=== PATIENT | female | born 1965 | race Two or more races ===

== ENCOUNTER 2021-05-30 16:48 | Inpatient (IN) | payer OTHER ==
[~2021-05-30] VITALS: Ht 157.5 cm; Wt 83.9 kg
[2021-05-30] MEDS ORDERED: BUMETANIDE INJ 0.25 MG/ML VIAL ONE (17:16)
[2021-05-30] MEDS ORDERED: BUMETANIDE INJ 0.25 MG/ML VIAL IV ONE (17:30)
[2021-05-30 17:58] LABS: BASOPHILS % (AUTO) 0.6 % (0.0-2.0); EOSINOPHILS % (AUTO) 3.2 % (0.0-6.0); HEMATOCRIT 29 % (33-45); HEMOGLOBIN 9.4 g/dL (11.5-14.8); LYMPHOCYTES # (AUTO) 1.4 K/uL (0.8-4.8); LYMPHOCYTES % (AUTO) 18.2 % (20.0-44.0); MEAN CORPUSCULAR HGB CONC 33 g/dl (31.0-36.0); MEAN CORPUSCULAR VOLUME 94 fL (82-100); MONOCYTES # (AUTO) 0.7 K/uL (0.1-1.30); MONOCYTES % (AUTO) 8.3 % (2.0-12.0); NEUTROPHILS # (AUTO) 5.5 K/uL (1.8-8.9); NEUTROPHILS % (AUTO) 69.7 % (43.0-81.0); PLATELET COUNT (AUTO) 219 K/uL (150-450); RED BLOOD CELL COUNT(AUTO) 3.08 MIL/uL (4.0-5.2); WHITE BLOOD COUNT (AUTO) 7.9 K/uL (4.3-11.0)
[2021-05-30 18:11] LABS: CALCIUM, SERUM 8.3 mg/dL (8.5-10.1); CARBON DIOXIDE 24 mmol/L (21-32); CHLORIDE 110 mmol/L (98-107); CREATININE 1.9 mg/dL (0.6-1.3); GLUCOSE 148 mg/dL (74-106); POTASSIUM 5.5 mmol/L (3.5-5.1); SODIUM SERUM 140 mmol/L (136-145); UREA NITROGEN, BLOOD 41 mg/dL (7-18)
[2021-05-30] MEDS ORDERED: NITROGLYCERIN 0.4 MG/TAB BOTTLE SL ONE (18:30)
[2021-05-30] MEDS ORDERED: NITROGLYCERIN 0.4 MG/TAB BOTTLE ONE (18:53)
[2021-05-30] MEDS ORDERED: ENALAPRILAT INJ (1.25 MG/ML) 1.25 MG/ML VIAL IV ONE (21:28)
[2021-05-30] MEDS ORDERED: ENALAPRILAT DIHYD. (2.5MG/2ML) 1.25 MG/ML VIAL IV ONE (21:30)
[2021-05-30] MEDS ORDERED: ONDANSETRON HCL/PF 4 MG/2 ML VIAL IVP PRN (21:30)
[2021-05-30] MEDS ORDERED: LABETALOL HCL IV 100MG VIAL ONE (22:31)
[2021-05-30] MEDS: LABETALOL 20 MG/4 ML VIAL IV PRN (22:34)
[2021-05-30] MEDS: HEPARIN SODIUM, PORCINE 5000 UNITS/1 ML VIAL SQ SCH (22:51)
[2021-05-30] MEDS ORDERED: HEPARIN SODIUM, PORCINE 5000 UNITS/1 ML VIAL ONE (22:51)
[2021-05-30] MEDS ORDERED: DEXTROSE 50%-WATER 50 ML DISP.SYRIN IV PRN (23:00)
[2021-05-31] MEDS ORDERED: MORPHINE SULFATE INJ 2 MG/ML DISP.SYRIN ONE ×2 (00:38→05:39)
[2021-05-31] MEDS: MORPHINE SULFATE INJ 2 MG/ML DISP.SYRIN IV PRN ×2 (00:39→05:39)
[2021-05-31] MEDS ORDERED: DAPA10TA PO (01:05)
[2021-05-31] MEDS ORDERED: AZIT250T13 PO (01:05)
[2021-05-31] MEDS ORDERED: LEVO88TA5 PO (01:05)
[2021-05-31] MEDS ORDERED: GLIP10TA11 PO (01:05)
[2021-05-31] MEDS ORDERED: LABE200T5 PO (01:05)
[2021-05-31] MEDS ORDERED: ALBU2.5V38 IH (01:05)
[2021-05-31] MEDS ORDERED: BUME1TAB8 PO (01:05)
[2021-05-31] MEDS ORDERED: ACET-73 PO (01:05)
[2021-05-31] MEDS ORDERED: PANT40TA49 PO (01:05)
[2021-05-31] MEDS ORDERED: HYDR-4077 PO (01:05)
[2021-05-31 04:38] LABS: BASOPHILS % (AUTO) 0.5 % (0.0-2.0); EOSINOPHILS % (AUTO) 4.6 % (0.0-6.0); HEMATOCRIT 28 % (33-45); HEMOGLOBIN 9.5 g/dL (11.5-14.8); LYMPHOCYTES # (AUTO) 1.5 K/uL (0.8-4.8); LYMPHOCYTES % (AUTO) 22.1 % (20.0-44.0); MEAN CORPUSCULAR HGB CONC 33 g/dl (31.0-36.0); MEAN CORPUSCULAR VOLUME 94 fL (82-100); MONOCYTES # (AUTO) 0.6 K/uL (0.1-1.30); MONOCYTES % (AUTO) 9.1 % (2.0-12.0); NEUTROPHILS # (AUTO) 4.4 K/uL (1.8-8.9); NEUTROPHILS % (AUTO) 63.7 % (43.0-81.0); PLATELET COUNT (AUTO) 207 K/uL (150-450); RED BLOOD CELL COUNT(AUTO) 3.03 MIL/uL (4.0-5.2); WHITE BLOOD COUNT (AUTO) 6.9 K/uL (4.3-11.0)
[2021-05-31] MEDS: LABETALOL 20 MG/4 ML VIAL IV PRN (04:41)
[2021-05-31 05:33] LABS: ALBUMIN 2.4 g/dL (3.4-5.0); BILIRUBIN,TOTAL 0.3 mg/dL (0.2-1.0); CALCIUM, SERUM 8.1 mg/dL (8.5-10.1); CREATININE 1.9 mg/dL (0.6-1.3); MAGNESIUM 3.1 mg/dL (1.8-2.4); PHOSPHORUS 4.2 mg/dL (2.5-4.9); TOTAL PROTEIN, SERUM 5.8 g/dL (6.4-8.2)
[2021-05-31] MEDS: BLOOD SUGAR DIAGNOSTIC 1 EACH STRIP VI SCH ×4 (07:53→21:55)
[2021-05-31] MEDS ORDERED: BUMETANIDE INJ 0.25 MG/ML VIAL ONE (08:59)
[2021-05-31] MEDS: HEPARIN SODIUM, PORCINE 5000 UNITS/1 ML VIAL SQ SCH ×2 (09:00→20:45)
[2021-05-31] MEDS: BUMETANIDE INJ 0.25 MG/ML VIAL IV SCH ×2 (09:05→17:49)
[2021-05-31] MEDS ORDERED: HEPARIN SODIUM, PORCINE 5000 UNITS/1 ML VIAL ONE (09:56)
[2021-05-31] MEDS ORDERED: hydrALAZINE HCL 50 MG TABLET ONE (11:20)
[2021-05-31] MEDS: hydrALAZINE HCL 50 MG TABLET PO SCH ×2 (11:20→20:47)
[2021-05-31 16:00] VITALS: BP 151/84
[2021-05-31 20:00] VITALS: BP 186/100
[2021-05-31] MEDS: *INSULIN REGULAR(HUMULIN R)HUM 100 UNIT/ML VIAL SQ PRN (21:57)
[2021-05-31] MEDS ORDERED: LABETALOL HCL IV 100MG VIAL ONE (22:41)
[2021-05-31] MEDS: DOCUSATE SODIUM 100 MG CAPSULE PO SCH (22:44)
[2021-06-01] VITALS: BP 152/82
[2021-06-01] MEDS: CARVEDILOL 6.25 MG TABLET PO SCH ×3 (00:31→16:17)
[2021-06-01 04:00] VITALS: BP 156/85
[2021-06-01] MEDS: INSULIN REGULAR, HUMAN 100 UNIT/ML 3 ML VIAL SQ PRN ×3 (06:33→17:08)
[2021-06-01] MEDS: BLOOD SUGAR DIAGNOSTIC 1 EACH STRIP VI SCH ×4 (06:33→21:41)
[2021-06-01 06:57] LABS: BASOPHILS # (AUTO) 0.1 K/uL (0.0-0.2); BASOPHILS % (AUTO) 0.8 % (0.0-2.0); EOSINOPHILS % (AUTO) 3.5 % (0.0-6.0); HEMATOCRIT 30 % (33-45); LYMPHOCYTES # (AUTO) 0.9 K/uL (0.8-4.8); LYMPHOCYTES % (AUTO) 11.1 % (20.0-44.0); MEAN CORPUSCULAR HGB CONC 33 g/dl (31.0-36.0); MEAN CORPUSCULAR VOLUME 94 fL (82-100); MONOCYTES # (AUTO) 0.7 K/uL (0.1-1.30); MONOCYTES % (AUTO) 8.5 % (2.0-12.0); NEUTROPHILS # (AUTO) 6.2 K/uL (1.8-8.9); NEUTROPHILS % (AUTO) 76.1 % (43.0-81.0); PLATELET COUNT (AUTO) 234 K/uL (150-450); RED BLOOD CELL COUNT(AUTO) 3.24 MIL/uL (4.0-5.2); WHITE BLOOD COUNT (AUTO) 8.1 K/uL (4.3-11.0)
[2021-06-01 07:09] LABS: CALCIUM, SERUM 8.5 mg/dL (8.5-10.1); CREATININE 1.9 mg/dL (0.6-1.3); MAGNESIUM 2.9 mg/dL (1.8-2.4); PHOSPHORUS 4.9 mg/dL (2.5-4.9); POTASSIUM 5.1 mmol/L (3.5-5.1)
[2021-06-01 08:00] VITALS: BP 183/93
[2021-06-01] MEDS: HEPARIN SODIUM, PORCINE 5000 UNITS/1 ML VIAL SQ SCH ×2 (08:07→21:07)
[2021-06-01] MEDS: DOCUSATE SODIUM 100 MG CAPSULE PO SCH (08:11)
[2021-06-01] MEDS: BUMETANIDE INJ 0.25 MG/ML VIAL IV SCH ×2 (08:11→16:17)
[2021-06-01] MEDS: hydrALAZINE HCL 50 MG TABLET PO SCH ×2 (08:12→21:05)
[2021-06-01 12:00] VITALS: BP 145/72
[2021-06-01 16:00] VITALS: BP 143/80
[2021-06-01] MEDS ORDERED: methylPREDNISolone SOD SUCC 40 MG/ML VIAL IV ONE (19:00)
[2021-06-01] MEDS: PANTOPRAZOLE 40 MG VIAL IV SCH (19:18)
[2021-06-01 20:00] VITALS: BP 162/74
[2021-06-01] MEDS: *INSULIN REGULAR(HUMULIN R)HUM 100 UNIT/ML VIAL SQ PRN (21:51)
[2021-06-02] VITALS: BP 148/83
[2021-06-02 04:00] VITALS: BP 158/80
[2021-06-02] MEDS: INSULIN REGULAR, HUMAN 100 UNIT/ML 3 ML VIAL SQ PRN ×3 (06:37→17:06)
[2021-06-02] MEDS: BLOOD SUGAR DIAGNOSTIC 1 EACH STRIP VI SCH ×4 (06:54→22:24)
[2021-06-02] MEDS: DOCUSATE SODIUM 100 MG CAPSULE PO SCH (08:46)
[2021-06-02] MEDS: BUMETANIDE INJ 0.25 MG/ML VIAL IV SCH ×2 (08:47→16:56)
[2021-06-02] MEDS: HEPARIN SODIUM, PORCINE 5000 UNITS/1 ML VIAL SQ SCH ×2 (08:49→21:00)
[2021-06-02] MEDS: hydrALAZINE HCL 50 MG TABLET PO SCH ×2 (08:53→21:37)
[2021-06-02] MEDS: CARVEDILOL 6.25 MG TABLET PO SCH ×2 (08:53→16:56)
[2021-06-02] MEDS ORDERED: FUROSEMIDE 40 MG/4 ML VIAL IV SCH (11:30)
[2021-06-02 11:40] LABS: BASOPHILS % (AUTO) 0.4 % (0.0-2.0); HEMATOCRIT 30 % (33-45); LYMPHOCYTES # (AUTO) 1.1 K/uL (0.8-4.8); LYMPHOCYTES % (AUTO) 14.3 % (20.0-44.0); MEAN CORPUSCULAR HGB CONC 33 g/dl (31.0-36.0); MEAN CORPUSCULAR VOLUME 93 fL (82-100); MONOCYTES # (AUTO) 0.7 K/uL (0.1-1.30); MONOCYTES % (AUTO) 9.4 % (2.0-12.0); NEUTROPHILS # (AUTO) 5.7 K/uL (1.8-8.9); NEUTROPHILS % (AUTO) 75.9 % (43.0-81.0); PLATELET COUNT (AUTO) 220 K/uL (150-450); RED BLOOD CELL COUNT(AUTO) 3.27 MIL/uL (4.0-5.2); WHITE BLOOD COUNT (AUTO) 7.5 K/uL (4.3-11.0)
[2021-06-02 13:30] LABS: CALCIUM, SERUM 8.2 mg/dL (8.5-10.1); CREATININE 2.3 mg/dL (0.6-1.3)
[2021-06-02] MEDS: PANTOPRAZOLE 40 MG VIAL IV SCH (18:20)
[2021-06-02 20:00] VITALS: BP 132/66
[2021-06-02] MEDS: *INSULIN REGULAR(HUMULIN R)HUM 100 UNIT/ML VIAL SQ PRN (22:24)
[2021-06-03 06:49] LABS: BASOPHILS # (AUTO) 0.1 K/uL (0.0-0.2); BASOPHILS % (AUTO) 0.9 % (0.0-2.0); EOSINOPHILS % (AUTO) 2.5 % (0.0-6.0); HEMATOCRIT 29 % (33-45); HEMOGLOBIN 9.6 g/dL (11.5-14.8); LYMPHOCYTES # (AUTO) 1.5 K/uL (0.8-4.8); MEAN CORPUSCULAR HGB CONC 33 g/dl (31.0-36.0); MEAN CORPUSCULAR VOLUME 94 fL (82-100); MONOCYTES # (AUTO) 0.6 K/uL (0.1-1.30); MONOCYTES % (AUTO) 8.9 % (2.0-12.0); NEUTROPHILS # (AUTO) 4.9 K/uL (1.8-8.9); NEUTROPHILS % (AUTO) 66.7 % (43.0-81.0); PLATELET COUNT (AUTO) 225 K/uL (150-450); RED BLOOD CELL COUNT(AUTO) 3.07 MIL/uL (4.0-5.2); WHITE BLOOD COUNT (AUTO) 7.3 K/uL (4.3-11.0)
[2021-06-03 07:22] LABS: CALCIUM, SERUM 8.1 mg/dL (8.5-10.1); CREATININE 2.2 mg/dL (0.6-1.3); MAGNESIUM 2.8 mg/dL (1.8-2.4); PHOSPHORUS 5.6 mg/dL (2.5-4.9); POTASSIUM 5.5 mmol/L (3.5-5.1)
[2021-06-03] MEDS: BLOOD SUGAR DIAGNOSTIC 1 EACH STRIP VI SCH ×4 (07:31→22:00)
[2021-06-03] MEDS: INSULIN REGULAR, HUMAN 100 UNIT/ML 3 ML VIAL SQ PRN ×2 (07:31→17:38)
[2021-06-03 08:00] VITALS: BP 173/78
[2021-06-03] MEDS: HEPARIN SODIUM, PORCINE 5000 UNITS/1 ML VIAL SQ SCH ×3 (08:38→21:00)
[2021-06-03] MEDS: hydrALAZINE HCL 50 MG TABLET PO SCH ×2 (08:39→21:08)
[2021-06-03] MEDS: CARVEDILOL 6.25 MG TABLET PO SCH ×2 (08:40→17:24)
[2021-06-03] MEDS: DOCUSATE SODIUM 100 MG CAPSULE PO SCH (08:40)
[2021-06-03] MEDS ORDERED: SODIUM POLYSTYRENE SULFONATE 15 G/60 ML BOTTLE PO ONE (09:30)
[2021-06-03] MEDS: ACETAMINOPHEN 325 MG TABLET PO PRN ×2 (11:44→21:14)
[2021-06-03 12:00] VITALS: BP 135/73
[2021-06-03] MEDS: MORPHINE SULFATE INJ 2 MG/ML DISP.SYRIN IV PRN (13:35)
[2021-06-03 16:00] VITALS: BP 118/76
[2021-06-03] MEDS: BUMETANIDE (1 MG) 1 MG TABLET PO SCH (17:23)
[2021-06-03] MEDS: PANTOPRAZOLE 40 MG VIAL IV SCH (18:11)
[2021-06-03 20:00] VITALS: BP 132/63
[2021-06-03 20:40] VITALS: BP 132/63
[2021-06-03] MEDS: *INSULIN REGULAR(HUMULIN R)HUM 100 UNIT/ML VIAL SQ PRN (22:37)
[2021-06-04] VITALS (7 sets, daily range): BP systolic 130–149; BP diastolic 69–83
[2021-06-04 06:35] LABS: BASOPHILS # (AUTO) 0.1 K/uL (0.0-0.2); BASOPHILS % (AUTO) 1.3 % (0.0-2.0); EOSINOPHILS % (AUTO) 4.3 % (0.0-6.0); HEMATOCRIT 29 % (33-45); HEMOGLOBIN 9.7 g/dL (11.5-14.8); LYMPHOCYTES # (AUTO) 1.4 K/uL (0.8-4.8); LYMPHOCYTES % (AUTO) 23.6 % (20.0-44.0); MEAN CORPUSCULAR HGB CONC 34 g/dl (31.0-36.0); MEAN CORPUSCULAR VOLUME 92 fL (82-100); MONOCYTES # (AUTO) 0.6 K/uL (0.1-1.30); MONOCYTES % (AUTO) 9.8 % (2.0-12.0); NEUTROPHILS # (AUTO) 3.6 K/uL (1.8-8.9); PLATELET COUNT (AUTO) 226 K/uL (150-450); RED BLOOD CELL COUNT(AUTO) 3.13 MIL/uL (4.0-5.2); WHITE BLOOD COUNT (AUTO) 5.9 K/uL (4.3-11.0)
[2021-06-04] MEDS: INSULIN REGULAR, HUMAN 100 UNIT/ML 3 ML VIAL SQ PRN (07:16)
[2021-06-04] MEDS: BLOOD SUGAR DIAGNOSTIC 1 EACH STRIP VI SCH ×2 (07:17→12:38)
[2021-06-04 08:00] LABS: CREATININE 2.4 mg/dL (0.6-1.3); MAGNESIUM 2.7 mg/dL (1.8-2.4); POTASSIUM 5.1 mmol/L (3.5-5.1)
[2021-06-04 08:07] LABS: *SPE ALPHA-1-GLOBULIN 0.2 g/dL (0.0-0.4); *SPE ALPHA-2-GLOBULIN 0.7 g/dL (0.4-1.0); *SPE M-SPIKE Not Observed g/dL (Not Observed)
[2021-06-04 08:44] LABS: CREATININE, URINE 96.5 MG/DL (30.0-125.0)
[2021-06-04 08:48] LABS: BILIRUBIN,URINE NEGATIVE (NEGATIVE); COLOR,URINE YELLOW (YELLOW); LEUKOCYTE ESTERASE ,URINE NEGATIVE (NEGATIVE); NITRITE, URINE NEGATIVE (NEGATIVE); PROTEIN,URINE 100 mg/dl (NEGATIVE); UGLUCOSE >=1000 mg/dL (NEGATIVE); UROBILINOGEN,URINE 0.2 EU/dL (0.2)
[2021-06-04] MEDS ORDERED: PANTOPRAZOLE 40 MG TABLET.DR PO SCH (09:00)
[2021-06-04 09:02] LABS: BACTERIA,URINE None seen /HPF (None Seen); COARSE GRANULAR CASTS,URINE Rare /LPF (None Seen); SQUAMOUS EPITHELIAL CELL,UR Few /HPF (None Seen)
[2021-06-04 09:39] LABS: URINE TOTAL PROTEIN 493.6 mg/dL (0-11.9)
[2021-06-04] MEDS: hydrALAZINE HCL 50 MG TABLET PO SCH (09:56)
[2021-06-04] MEDS: HEPARIN SODIUM, PORCINE 5000 UNITS/1 ML VIAL SQ SCH (09:56)
[2021-06-04] MEDS: CARVEDILOL 6.25 MG TABLET PO SCH (09:57)
[2021-06-04] MEDS: DOCUSATE SODIUM 100 MG CAPSULE PO SCH (09:57)
[2021-06-04] MEDS: BUMETANIDE (1 MG) 1 MG TABLET PO SCH (09:57)
[2021-06-04] MEDS ORDERED: BUME1TAB8 PO (10:45)
[2021-06-04] MEDS ORDERED: HYDR-4077 PO (10:45)
[2021-06-04] MEDS ORDERED: CARV6.252 PO (10:45)
[2021-06-06 06:06] LABS: *PEUR ALBUMIN 65.3 % (.); *PEUR ALPHA-1-GLOBULIN 1.4 % (.); *PEUR ALPHA-2-GLOBULIN 7.2 % (.); *PEUR BETA GLOBULIN 11.9 % (.); *PEUR GAMMA GLOBULIN 14.1 % (.)
== END 2021-06-04 17:30 | disposition home or self-care (01) | DRG 203 ==
LOC: ER 16:50 → TRANSITION 22:25 → TELE 05-31 16:13
PROVIDERS: ADMIT Internal Medicine
PROC: 0W9B3ZZ Drainage of Left Pleural Cavity, Percutaneous Approach (ICD-10-PCS; principal; 2021-06-03)
DX: M94.0 Chondrocostal junction syndrome [Tietze] (principal); I50.33 Acute on chronic diastolic (congestive) heart failure; J90 Pleural effusion, not elsewhere classified; E11.22 Type 2 diabetes mellitus with diabetic chronic kidney disease; E88.09 Other disorders of plasma-protein metabolism, not elsewhere classified; L97.918 Non-pressure chronic ulcer of unspecified part of right lower leg with other specified severity; I87.311 Chronic venous hypertension (idiopathic) with ulcer of right lower extremity; D64.9 Anemia, unspecified; N18.4 Chronic kidney disease, stage 4 (severe); E66.01 Morbid (severe) obesity due to excess calories; E78.00 Pure hypercholesterolemia, unspecified; E87.5 Hyperkalemia; I16.1 Hypertensive emergency; I13.0 Hypertensive heart and chronic kidney disease with heart failure and stage 1 through stage 4 chronic kidney disease, or unspecified chronic kidney disease; Z20.822 Contact with and (suspected) exposure to COVID-19; Z68.33 Body mass index [BMI] 33.0-33.9, adult; I87.2 Venous insufficiency (chronic) (peripheral); E11.65 Type 2 diabetes mellitus with hyperglycemia
CPT/HCPCS: 36415; 71045-TC; 71250-TC; 76770-TC; 80048-TC; 80053-TC; 81001; 82570-TC; 82962-TC; 83735-TC; 83880; 84100-TC; 84155; 84155-TC; 84156; 84165; 84166; 84484-TC; 85025-TC; 85610-TC; 87070-TC; 87075-TC; 87081-TC; 87086-TC; 87102-TC; 88108-TC; 88305-TC; 89051-TC; 93307-TC; A6253; A6403; C9113; C9803; G0378; J1644; J1815; J1940; J2270; J2405; J2920; J3490

== ENCOUNTER 2024-02-21 17:19 | Inpatient (IN) | payer MEDICARE, OTHER ==
[~2024-02-21] VITALS: Ht 157.5 cm; Wt 76.7 kg
[2024-02-21] VITALS (21 sets, daily range): BP systolic 85–131; BP diastolic 49–95; TEMP 98; O2SAT 92–99
[~2024-02-21 17:19] MED LIST: ACET-73 PO; ALBU2.5V38 IH; BUME1TAB8 PO; CARV6.252 PO; DAPA10TA PO; GLIP10TA11 PO; HYDR-4077 PO; LEVO88TA5 PO; PANT40TA49 PO
[2024-02-21] MEDS ORDERED: MORPHINE SULFATE INJ 4 MG/ML DISP.SYRIN ONE (17:39)
[2024-02-21] MEDS ORDERED: ONDANSETRON HCL/PF 4 MG/2 ML VIAL ONE (17:39)
[2024-02-21] MEDS: ONDANSETRON HCL/PF 4 MG/2 ML VIAL IVP ONE (17:50)
[2024-02-21] MEDS: MORPHINE SULFATE INJ 2 MG/ML DISP.SYRIN IV ONE (17:52)
[2024-02-21 18:09] LABS: BASOPHILS # (AUTO) 0.1 K/uL (0.0-0.2); BASOPHILS % (AUTO) 0.4 % (0.0-2.0); EOSINOPHILS % (AUTO) 0.2 % (0.0-6.0); HEMATOCRIT 34 % (33-45); HEMOGLOBIN 11.6 g/dL (11.5-14.8); LYMPHOCYTES # (AUTO) 0.9 K/uL (0.8-4.8); LYMPHOCYTES % (AUTO) 6.1 % (20.0-44.0); MEAN CORPUSCULAR HEMOGLOBIN 34 PG (26.0-33.0); MEAN CORPUSCULAR HGB CONC 34 g/dl (31.0-36.0); MEAN CORPUSCULAR VOLUME 100 fL (82-100); MONOCYTES # (AUTO) 1.4 K/uL (0.1-1.30); MONOCYTES % (AUTO) 9.6 % (2.0-12.0); NEUTROPHILS # (AUTO) 12.6 K/uL (1.8-8.9); NEUTROPHILS % (AUTO) 83.7 % (43.0-81.0); PLATELET COUNT (AUTO) 264 K/uL (150-450); RED BLOOD CELL COUNT(AUTO) 3.45 MIL/uL (4.0-5.2); RED CELL DISTRIBUTION WIDTH 14.4 % (11.5-15.0)
[2024-02-21 18:21] LABS: ALBUMIN 3.6 g/dL (3.4-5.0); BILIRUBIN,DIRECT 0.2 mg/dL (0.0-0.2); BILIRUBIN,TOTAL 0.6 mg/dL (0.2-1.0); CALCIUM, SERUM 8.1 mg/dL (8.5-10.1); TOTAL PROTEIN, SERUM 8.4 g/dL (6.4-8.2)
[2024-02-21 18:30] LABS: POTASSIUM 6.6 mmol/L (3.5-5.1)
[2024-02-21 18:31] LABS: CREATININE 10.7 mg/dL (0.6-1.3)
[2024-02-21] MEDS ORDERED: CHOL100043 PO (18:54)
[2024-02-21] MEDS ORDERED: SENN8.6T19 PO (18:54)
[2024-02-21] MEDS ORDERED: POLY17PO4 PO (18:54)
[2024-02-21] MEDS ORDERED: AMLO5TAB4 PO (18:54)
[2024-02-21] MEDS ORDERED: INSU100V7 SQ (18:54)
[2024-02-21] MEDS ORDERED: ONDA4TAB5 PO (18:54)
[2024-02-21] MEDS ORDERED: ATOR80TA PO (18:54)
[2024-02-21] MEDS ORDERED: DARBEPOETIN ALFA SQ (18:54)
[2024-02-21] MEDS ORDERED: LEVO88TA5 PO (18:54)
[2024-02-21] MEDS ORDERED: ASPI-1420 PO (18:54)
[2024-02-21] MEDS ORDERED: MAGN400T30 PO (18:54)
[2024-02-21] MEDS ORDERED: SAXA5TAB PO (18:54)
[2024-02-21] MEDS ORDERED: GABA100C PO ×2 (18:54)
[2024-02-21] MEDS ORDERED: NUTR100037 PO (18:54)
[2024-02-21] MEDS ORDERED: INSU100V39 SQ (18:54)
[2024-02-21] MEDS ORDERED: BISA10SU11 RC (18:54)
[2024-02-21] MEDS ORDERED: PANT40TA2 PO (18:54)
[2024-02-21] MEDS ORDERED: VIT1TABL46 PO (18:54)
[2024-02-21] MEDS ORDERED: CARV6.25 PO (18:54)
[2024-02-21] MEDS ORDERED: SEVE800T7 PO (18:54)
[2024-02-21] MEDS ORDERED: AMIN30LI2 PO (18:54)
[2024-02-21] MEDS ORDERED: CALCIUM CHLORIDE 1,000 MG/10 ML DISP.SYRIN ONE (19:04)
[2024-02-21] MEDS ORDERED: DEXTROSE 50%-WATER 50 ML DISP.SYRIN ONE (19:04)
[2024-02-21] MEDS ORDERED: METRONIDAZOLE 500MG/ NS 100ML 100 ML IV ONE (19:04)
[2024-02-21] MEDS ORDERED: CEFTRIAXONE 1GM BAG (ER ONLY) 100 ML IV ONE (19:04)
[2024-02-21] MEDS ORDERED: FUROSEMIDE 20 MG/2 ML VIAL ONE (19:04)
[2024-02-21] MEDS ORDERED: HYDROMORPHONE 1 MG/1 ML DISP.SYRIN ONE (19:05)
[2024-02-21] MEDS ORDERED: INSULIN REGULAR, HUMAN 100 UNIT/ML 10 ML VIAL ONE (19:05)
[2024-02-21] MEDS ORDERED: SODIUM ZIRCONIUM CYCLOSILICATE 5 GM POWD.PACK ONE (19:05)
[2024-02-21] MEDS: DEXTROSE 50%-WATER 50 ML DISP.SYRIN IV ONE (19:08)
[2024-02-21] MEDS: INSULIN REGULAR, HUMAN 100 UNIT/ML 10 ML VIAL IV ONE (19:12)
[2024-02-21] MEDS: CALCIUM CHLORIDE 1,000 MG/10 ML DISP.SYRIN IV ONE (19:14)
[2024-02-21] MEDS: HYDROMORPHONE 1 MG/1 ML DISP.SYRIN IV ONE (19:20)
[2024-02-21] MEDS: FUROSEMIDE 40 MG/4 ML VIAL IV ONE (19:25)
[2024-02-21] MEDS ORDERED: MAG HYDROX/AL HYDROX/SIMETH 30 ML UDC PO PRN (19:30)
[2024-02-21] MEDS ORDERED: MAGNESIUM HYDROXIDE 30 ML UDC PO PRN (19:30)
[2024-02-21] MEDS ORDERED: ACETAMINOPHEN 325 MG TABLET PO PRN (19:30)
[2024-02-21] MEDS ORDERED: Z GUARD REMEDY 4 OZ OINT TP PRN (19:30)
[2024-02-21] MEDS: SODIUM ZIRCONIUM CYCLOSILICATE 5 GM POWD.PACK PO ONE (19:30)
[2024-02-21] MEDS ORDERED: DEXTROSE 50%-WATER 50 ML DISP.SYRIN IV PRN (19:30)
[2024-02-21] MEDS: FLAGYL/NS RTU 500 MG/100 ML PIGGYBACK IV ONE (19:36)
[2024-02-21] MEDS: CEFTRIAXONE 1GM BAG (ER ONLY) 1 GM/50 ML PIGGYBACK IV ONE (19:36)
[2024-02-21] MEDS: ALBUTEROL FS 2.5 MG/3 ML VIAL.NEB NEB ONE (20:48)
[2024-02-21] MEDS ORDERED: ALBUTEROL FS 2.5 MG/3 ML VIAL.NEB ONE (20:49)
[2024-02-21] MEDS: ALBUMIN 25% 25 GM in PREMIX 1 EA IV PRN (22:23)
[2024-02-21] MEDS: ALBUMIN 25% 100 ML IV ONE (22:26)
[2024-02-22] VITALS (20 sets, daily range): BP systolic 96–146; BP diastolic 52–72; TEMP 98–99.7; O2SAT 93–99
[2024-02-22] MEDS: BLOOD SUGAR DIAGNOSTIC 1 EACH STRIP IN SCH (00:31)
[2024-02-22] MEDS: HYDROMORPHONE 1 MG/1 ML DISP.SYRIN IV ONE (00:33)
[2024-02-22 03:27] LABS: BASOPHILS # (AUTO) 0.1 K/uL (0.0-0.2); BASOPHILS % (AUTO) 0.5 % (0.0-2.0); EOSINOPHILS % (AUTO) 0.4 % (0.0-6.0); HEMATOCRIT 30 % (33-45); LYMPHOCYTES % (AUTO) 8.4 % (20.0-44.0); MEAN CORPUSCULAR HEMOGLOBIN 33 PG (26.0-33.0); MEAN CORPUSCULAR HGB CONC 33 g/dl (31.0-36.0); MEAN CORPUSCULAR VOLUME 98 fL (82-100); MONOCYTES # (AUTO) 1.4 K/uL (0.1-1.30); MONOCYTES % (AUTO) 12.1 % (2.0-12.0); NEUTROPHILS # (AUTO) 8.9 K/uL (1.8-8.9); NEUTROPHILS % (AUTO) 78.6 % (43.0-81.0); PLATELET COUNT (AUTO) 226 K/uL (150-450); RED BLOOD CELL COUNT(AUTO) 3.05 MIL/uL (4.0-5.2); RED CELL DISTRIBUTION WIDTH 14.2 % (11.5-15.0); WHITE BLOOD COUNT (AUTO) 11.4 K/uL (4.3-11.0)
[2024-02-22 03:43] LABS: ALBUMIN 3.4 g/dL (3.4-5.0); BILIRUBIN,TOTAL 0.8 mg/dL (0.2-1.0); CALCIUM, SERUM 8.3 mg/dL (8.5-10.1); CREATININE 5.5 mg/dL (0.6-1.3); MAGNESIUM 2.1 mg/dL (1.8-2.4); PHOSPHORUS 3.6 mg/dL (2.5-4.9); POTASSIUM 4.4 mmol/L (3.5-5.1); TOTAL PROTEIN, SERUM 7.4 g/dL (6.4-8.2)
[2024-02-22] MEDS: METRONIDAZOLE 500MG/ NS 100ML 500 MG in PREMIX 1 EA IV SCH (05:19)
[2024-02-22] MEDS: HYDROMORPHONE 1 MG/1 ML DISP.SYRIN IV PRN (05:20)
[2024-02-22] MEDS: INSULIN REGULAR, HUMAN 100 UNIT/ML 3 ML VIAL SQ PRN (05:36)
[2024-02-22] MEDS: METRONIDAZOLE 500MG/ NS 100ML 100 ML IV ONE (05:37)
[2024-02-22] MEDS: CEFTRIAXONE 2 G in IV D5W 100 ML IV SCH (21:02)
[2024-02-23 04:00] VITALS: BP 118/58; TEMP 98.9; O2SAT 96
[2024-02-23 06:11] LABS: HEPATITIS B SURFACE AB Reactive (.)
[2024-02-23 07:19] LABS: BASOPHILS # (AUTO) 0.1 K/uL (0.0-0.2); BASOPHILS % (AUTO) 0.4 % (0.0-2.0); EOSINOPHILS % (AUTO) 0.1 % (0.0-6.0); HEMATOCRIT 30 % (33-45); HEMOGLOBIN 9.9 g/dL (11.5-14.8); LYMPHOCYTES # (AUTO) 1.3 K/uL (0.8-4.8); LYMPHOCYTES % (AUTO) 10.1 % (20.0-44.0); MEAN CORPUSCULAR HEMOGLOBIN 33 PG (26.0-33.0); MEAN CORPUSCULAR HGB CONC 33 g/dl (31.0-36.0); MEAN CORPUSCULAR VOLUME 102 fL (82-100); MONOCYTES # (AUTO) 1.7 K/uL (0.1-1.30); NEUTROPHILS % (AUTO) 76.4 % (43.0-81.0); PLATELET COUNT (AUTO) 206 K/uL (150-450); RED BLOOD CELL COUNT(AUTO) 2.98 MIL/uL (4.0-5.2); RED CELL DISTRIBUTION WIDTH 14.7 % (11.5-15.0); WHITE BLOOD COUNT (AUTO) 13.1 K/uL (4.3-11.0)
[2024-02-23 07:43] LABS: ALBUMIN 2.8 g/dL (3.4-5.0); CALCIUM, SERUM 8.1 mg/dL (8.5-10.1); MAGNESIUM 2.4 mg/dL (1.8-2.4); PHOSPHORUS 7.3 mg/dL (2.5-4.9); POTASSIUM 5.9 mmol/L (3.5-5.1); TOTAL PROTEIN, SERUM 6.9 g/dL (6.4-8.2)
[2024-02-23 08:00] VITALS: BP 134/79; TEMP 98.7; O2SAT 95
[2024-02-23 08:12] LABS: CREATININE 8.9 mg/dL (0.6-1.3)
[2024-02-23] MEDS: IV 1/2NS 1000 ML 1,000 ML IV PRN (15:01)
[2024-02-23 16:00] VITALS: BP 140/77; TEMP 99.6; O2SAT 98
[2024-02-23] MEDS: SODIUM ZIRCONIUM CYCLOSILICATE 10 GM POWD.PACK PO ONE (17:15)
[2024-02-23 20:00] VITALS: BP 128/68; TEMP 100.6; O2SAT 93
[2024-02-24] VITALS: BP 128/68; TEMP 98.9; O2SAT 95
[2024-02-24 07:00] LABS: BASOPHILS # (AUTO) 0.1 K/uL (0.0-0.2); BASOPHILS % (AUTO) 0.3 % (0.0-2.0); EOSINOPHILS % (AUTO) 0.2 % (0.0-6.0); HEMATOCRIT 31 % (33-45); HEMOGLOBIN 10.1 g/dL (11.5-14.8); LYMPHOCYTES # (AUTO) 1.2 K/uL (0.8-4.8); LYMPHOCYTES % (AUTO) 7.5 % (20.0-44.0); MEAN CORPUSCULAR HEMOGLOBIN 34 PG (26.0-33.0); MEAN CORPUSCULAR HGB CONC 33 g/dl (31.0-36.0); MEAN CORPUSCULAR VOLUME 103 fL (82-100); MONOCYTES # (AUTO) 1.4 K/uL (0.1-1.30); MONOCYTES % (AUTO) 8.5 % (2.0-12.0); NEUTROPHILS # (AUTO) 13.3 K/uL (1.8-8.9); NEUTROPHILS % (AUTO) 83.5 % (43.0-81.0); PLATELET COUNT (AUTO) 224 K/uL (150-450); RED BLOOD CELL COUNT(AUTO) 2.99 MIL/uL (4.0-5.2); RED CELL DISTRIBUTION WIDTH 14.9 % (11.5-15.0); WHITE BLOOD COUNT (AUTO) 15.9 K/uL (4.3-11.0)
[2024-02-24 07:23] LABS: ALBUMIN 2.9 g/dL (3.4-5.0); BILIRUBIN,TOTAL 0.8 mg/dL (0.2-1.0); MAGNESIUM 2.6 mg/dL (1.8-2.4); POTASSIUM 5.9 mmol/L (3.5-5.1); TOTAL PROTEIN, SERUM 7.3 g/dL (6.4-8.2)
[2024-02-24 07:48] LABS: CREATININE 10.8 mg/dL (0.6-1.3)
[2024-02-24 07:49] LABS: PHOSPHORUS 8.4 mg/dL (2.5-4.9)
[2024-02-24 08:00] VITALS: BP 136/57; TEMP 98.1; O2SAT 95
[2024-02-24] MEDS ORDERED: [UNRECOGNIZED DRUG - OTHER] IV PRN (11:00)
[2024-02-24] MEDS: MEROPENEM 500 MG in IV NS 0.9% 50 ML IV SCH (12:00)
[2024-02-24 16:00] VITALS: BP 151/53; TEMP 98.4; O2SAT 98
[2024-02-25] VITALS: BP 140/72; TEMP 98; O2SAT 95
[2024-02-25 06:50] LABS: ALBUMIN 3.1 g/dL (3.4-5.0); BILIRUBIN,DIRECT 0.3 mg/dL (0.0-0.2); CALCIUM, SERUM 8.5 mg/dL (8.5-10.1); MAGNESIUM 2.3 mg/dL (1.8-2.4); PHOSPHORUS 6.8 mg/dL (2.5-4.9); POTASSIUM 4.6 mmol/L (3.5-5.1); TOTAL PROTEIN, SERUM 8.3 g/dL (6.4-8.2)
[2024-02-25 07:01] LABS: BASOPHILS % (AUTO) 0.4 % (0.0-2.0); EOSINOPHILS # (AUTO) 0.2 K/uL (0.0-0.7); EOSINOPHILS % (AUTO) 1.3 % (0.0-6.0); HEMATOCRIT 34 % (33-45); HEMOGLOBIN 11.2 g/dL (11.5-14.8); LYMPHOCYTES # (AUTO) 0.8 K/uL (0.8-4.8); LYMPHOCYTES % (AUTO) 6.7 % (20.0-44.0); MEAN CORPUSCULAR HEMOGLOBIN 33 PG (26.0-33.0); MEAN CORPUSCULAR HGB CONC 33 g/dl (31.0-36.0); MEAN CORPUSCULAR VOLUME 101 fL (82-100); MONOCYTES # (AUTO) 1.1 K/uL (0.1-1.30); MONOCYTES % (AUTO) 9.5 % (2.0-12.0); NEUTROPHILS # (AUTO) 9.6 K/uL (1.8-8.9); NEUTROPHILS % (AUTO) 82.1 % (43.0-81.0); PLATELET COUNT (AUTO) 261 K/uL (150-450); RED BLOOD CELL COUNT(AUTO) 3.37 MIL/uL (4.0-5.2); RED CELL DISTRIBUTION WIDTH 14.3 % (11.5-15.0); WHITE BLOOD COUNT (AUTO) 11.7 K/uL (4.3-11.0)
[2024-02-25 07:13] LABS: CREATININE 7.7 mg/dL (0.6-1.3)
[2024-02-25 07:19] LABS: INR 1.13 (0.91-1.10); PROTHROMBIN TIME 11.9 SECS (9.2-11.1)
[2024-02-25 08:00] VITALS: BP 168/71; TEMP 98.6; O2SAT 98
[2024-02-25] MEDS ORDERED: HYDROMORPHONE INJ 2 MG/ML DISP.SYRIN ONE (11:32)
[2024-02-25] MEDS ORDERED: FENTANYL PF 100MCG/2ML AMPUL ONE (11:32)
[2024-02-25] MEDS ORDERED: ROCURONIUM BROMIDE 50 MG/5 ML ONE (11:33)
[2024-02-25] MEDS: ONDANSETRON HCL/PF 4 MG/2 ML VIAL IVP PRN (12:04)
[2024-02-25] MEDS ORDERED: LIDOCAINE 1%-EPI 1:100,000 20 ML VIAL ONE (12:05)
[2024-02-25] MEDS ORDERED: INDOCYANINE GREEN 25 MG/VIAL VIAL IJ ONE (12:05)
[2024-02-25] MEDS ORDERED: BUPIVACAINE 0.5 % PF 150 MG/30 ML VIAL ONE (12:05)
[2024-02-25] MEDS ORDERED: IOHEXOL 0 ML IV ONE (13:35)
[2024-02-25] MEDS ORDERED: LIDOCAINE 1% INJ 50 ML MDV IJ ONE (14:39)
[2024-02-25] MEDS ORDERED: BUPIVACAINE MPF 0.5% W/EPI INJ 30 ML VIAL ONE (14:39)
[2024-02-25 16:00] VITALS: BP 156/73; TEMP 98.2; O2SAT 98
[2024-02-26] VITALS: BP 156/73; TEMP 98.2; O2SAT 98
[2024-02-26 06:38] LABS: BASOPHILS % (AUTO) 0.1 % (0.0-2.0); HEMATOCRIT 35 % (33-45); HEMOGLOBIN 11.4 g/dL (11.5-14.8); LYMPHOCYTES # (AUTO) 0.6 K/uL (0.8-4.8); LYMPHOCYTES % (AUTO) 6.1 % (20.0-44.0); MEAN CORPUSCULAR HEMOGLOBIN 34 PG (26.0-33.0); MEAN CORPUSCULAR HGB CONC 33 g/dl (31.0-36.0); MEAN CORPUSCULAR VOLUME 102 fL (82-100); MONOCYTES # (AUTO) 0.5 K/uL (0.1-1.30); MONOCYTES % (AUTO) 5.4 % (2.0-12.0); NEUTROPHILS # (AUTO) 8.2 K/uL (1.8-8.9); NEUTROPHILS % (AUTO) 88.4 % (43.0-81.0); PLATELET COUNT (AUTO) 275 K/uL (150-450); RED BLOOD CELL COUNT(AUTO) 3.38 MIL/uL (4.0-5.2); WHITE BLOOD COUNT (AUTO) 9.3 K/uL (4.3-11.0)
[2024-02-26 06:53] LABS: ALBUMIN 2.7 g/dL (3.4-5.0); BILIRUBIN,DIRECT 0.2 mg/dL (0.0-0.2); BILIRUBIN,TOTAL 0.7 mg/dL (0.2-1.0); CALCIUM, SERUM 7.7 mg/dL (8.5-10.1); MAGNESIUM 2.6 mg/dL (1.8-2.4); TOTAL PROTEIN, SERUM 7.7 g/dL (6.4-8.2)
[2024-02-26 07:27] LABS: CREATININE 9.9 mg/dL (0.6-1.3); PHOSPHORUS 10.9 mg/dL (2.5-4.9)
[2024-02-26 08:00] VITALS: BP 125/62; TEMP 97.6; O2SAT 98
[2024-02-26 12:00] VITALS: BP 139/70; TEMP 97.6; O2SAT 98
[2024-02-26 16:00] VITALS: BP 151/75; TEMP 97.9; O2SAT 96
[2024-02-26 20:00] VITALS: BP 155/76; TEMP 97.7; O2SAT 100
[2024-02-27] VITALS: BP 160/79; TEMP 97.5; O2SAT 100
[2024-02-27 04:00] VITALS: BP 158/72; TEMP 98; O2SAT 98
[2024-02-27 06:37] LABS: BASOPHILS % (AUTO) 0.4 % (0.0-2.0); EOSINOPHILS % (AUTO) 0.2 % (0.0-6.0); HEMATOCRIT 33 % (33-45); MEAN CORPUSCULAR HEMOGLOBIN 33 PG (26.0-33.0); MEAN CORPUSCULAR HGB CONC 33 g/dl (31.0-36.0); MEAN CORPUSCULAR VOLUME 99 fL (82-100); MONOCYTES # (AUTO) 1.1 K/uL (0.1-1.30); MONOCYTES % (AUTO) 11.4 % (2.0-12.0); NEUTROPHILS # (AUTO) 7.7 K/uL (1.8-8.9); PLATELET COUNT (AUTO) 291 K/uL (150-450); RED BLOOD CELL COUNT(AUTO) 3.33 MIL/uL (4.0-5.2); RED CELL DISTRIBUTION WIDTH 14.2 % (11.5-15.0); WHITE BLOOD COUNT (AUTO) 9.9 K/uL (4.3-11.0)
[2024-02-27 06:56] LABS: ALBUMIN 2.6 g/dL (3.4-5.0); BILIRUBIN,DIRECT 0.2 mg/dL (0.0-0.2); BILIRUBIN,TOTAL 0.5 mg/dL (0.2-1.0); CALCIUM, SERUM 7.9 mg/dL (8.5-10.1); CREATININE 6.4 mg/dL (0.6-1.3); POTASSIUM 3.9 mmol/L (3.5-5.1); TOTAL PROTEIN, SERUM 7.3 g/dL (6.4-8.2)
[2024-02-27 12:00] VITALS: BP 129/74; TEMP 97.8; O2SAT 94
[2024-02-27] MEDS: SEVELAMER CARBONATE 800 MG TABLET PO SCH (12:37)
[2024-02-27] MEDS: NEPRO VAN 237 ML CAN PO SCH (12:38)
[2024-02-27] MEDS: GABAPENTIN 100 MG CAPSULE PO SCH (12:38)
[2024-02-27] MEDS ORDERED: NUTRITIONAL SUPPLEMENT PO SCH (13:00)
[2024-02-27 20:00] VITALS: BP 111/64; TEMP 98.1; O2SAT 93
[2024-02-27] MEDS: CARVEDILOL 6.25 MG TABLET PO SCH (21:07)
[2024-02-27] MEDS: ATORVASTATIN 40 MG TABLET PO SCH (21:08)
[2024-02-28 04:00] VITALS: BP 121/55; TEMP 99.3; O2SAT 98
[2024-02-28 06:33] LABS: BASOPHILS % (AUTO) 0.3 % (0.0-2.0); EOSINOPHILS # (AUTO) 0.1 K/uL (0.0-0.7); EOSINOPHILS % (AUTO) 1.4 % (0.0-6.0); HEMATOCRIT 36 % (33-45); HEMOGLOBIN 11.8 g/dL (11.5-14.8); LYMPHOCYTES # (AUTO) 1.3 K/uL (0.8-4.8); LYMPHOCYTES % (AUTO) 15.9 % (20.0-44.0); MEAN CORPUSCULAR HEMOGLOBIN 34 PG (26.0-33.0); MEAN CORPUSCULAR HGB CONC 33 g/dl (31.0-36.0); MEAN CORPUSCULAR VOLUME 102 fL (82-100); MONOCYTES # (AUTO) 1.2 K/uL (0.1-1.30); MONOCYTES % (AUTO) 13.6 % (2.0-12.0); NEUTROPHILS # (AUTO) 5.8 K/uL (1.8-8.9); NEUTROPHILS % (AUTO) 68.8 % (43.0-81.0); PLATELET COUNT (AUTO) 289 K/uL (150-450); RED CELL DISTRIBUTION WIDTH 14.7 % (11.5-15.0); WHITE BLOOD COUNT (AUTO) 8.5 K/uL (4.3-11.0)
[2024-02-28 06:52] LABS: ALBUMIN 2.5 g/dL (3.4-5.0); BILIRUBIN,DIRECT 0.2 mg/dL (0.0-0.2); BILIRUBIN,TOTAL 0.6 mg/dL (0.2-1.0); CREATININE 5.2 mg/dL (0.6-1.3); MAGNESIUM 2.2 mg/dL (1.8-2.4); PHOSPHORUS 4.4 mg/dL (2.5-4.9); POTASSIUM 3.7 mmol/L (3.5-5.1); TOTAL PROTEIN, SERUM 7.2 g/dL (6.4-8.2)
[2024-02-28] MEDS: LEVOTHYROXINE SODIUM 88 MCG TABLET PO SCH (07:26)
[2024-02-28] MEDS: VIT B CMPLX 3/FA/VIT C/BIOTIN 1 TAB TABLET PO SCH (08:17)
[2024-02-28] MEDS: AMLODIPINE BESYLATE 5 MG TABLET PO SCH (08:17)
[2024-02-28] MEDS: INSULIN GLARGINE, 100 UNIT/ML CARTRIDGE SQ SCH (08:19)
[2024-02-28 12:16] VITALS: BP 132/79; TEMP 97.5; O2SAT 100
[2024-02-28 20:00] VITALS: BP 100/66; TEMP 99; O2SAT 95
[2024-02-29 04:00] VITALS: BP 110/65; TEMP 98.8; O2SAT 99
[2024-02-29 06:40] LABS: BASOPHILS % (AUTO) 0.3 % (0.0-2.0); EOSINOPHILS # (AUTO) 0.3 K/uL (0.0-0.7); EOSINOPHILS % (AUTO) 3.2 % (0.0-6.0); HEMATOCRIT 34 % (33-45); HEMOGLOBIN 11.1 g/dL (11.5-14.8); LYMPHOCYTES # (AUTO) 1.7 K/uL (0.8-4.8); LYMPHOCYTES % (AUTO) 15.8 % (20.0-44.0); MEAN CORPUSCULAR HEMOGLOBIN 34 PG (26.0-33.0); MEAN CORPUSCULAR HGB CONC 33 g/dl (31.0-36.0); MEAN CORPUSCULAR VOLUME 102 fL (82-100); MONOCYTES # (AUTO) 1.2 K/uL (0.1-1.30); MONOCYTES % (AUTO) 11.5 % (2.0-12.0); NEUTROPHILS # (AUTO) 7.2 K/uL (1.8-8.9); NEUTROPHILS % (AUTO) 69.2 % (43.0-81.0); PLATELET COUNT (AUTO) 285 K/uL (150-450); RED CELL DISTRIBUTION WIDTH 14.6 % (11.5-15.0); WHITE BLOOD COUNT (AUTO) 10.5 K/uL (4.3-11.0)
[2024-02-29 06:44] LABS: CALCIUM, SERUM 8.1 mg/dL (8.5-10.1); CREATININE 7.4 mg/dL (0.6-1.3); MAGNESIUM 2.2 mg/dL (1.8-2.4); PHOSPHORUS 5.2 mg/dL (2.5-4.9); POTASSIUM 4.1 mmol/L (3.5-5.1)
[2024-02-29 08:00] VITALS: BP 118/55; TEMP 98.1; O2SAT 92
[2024-02-29 08:28] VITALS: O2SAT 94
[2024-02-29] MEDS: HYDROCODONE/APAP 10/325MG TABLET PO PRN (10:15)
[2024-02-29] MEDS ORDERED: HYDR-3980 PO (11:31)
[2024-02-29] MEDS ORDERED: GABA-532 PO (11:31)
[2024-02-29 16:00] VITALS: BP 118/55; TEMP 98.1; O2SAT 94
== END 2024-02-29 17:28 | DRG 405 ==
LOC: ER 17:23 → ICU 19:07 → MEDSG1 02-22 18:18 → TELE1 02-26 09:31 → MEDSG1 02-27 10:45
PROVIDERS: ATTEND Nurse Practitioner Family
PROC: 5A1D70Z Performance of Urinary Filtration, Intermittent, Less than 6 Hours Per Day (ICD-10-PCS; principal; 2024-02-21)
PROC: 0FB04ZZ Excision of Liver, Percutaneous Endoscopic Approach (ICD-10-PCS; 2024-02-25)
PROC: 0FT44ZZ Resection of Gallbladder, Percutaneous Endoscopic Approach (ICD-10-PCS; 2024-02-25)
DX: K80.01 Calculus of gallbladder with acute cholecystitis with obstruction (principal); J96.01 Acute respiratory failure with hypoxia; N18.6 End stage renal disease; E87.1 Hypo-osmolality and hyponatremia; I13.2 Hypertensive heart and chronic kidney disease with heart failure and with stage 5 chronic kidney disease, or end stage renal disease; M46.26 Osteomyelitis of vertebra, lumbar region; K80.10 Calculus of gallbladder with chronic cholecystitis without obstruction; E03.9 Hypothyroidism, unspecified; I50.9 Heart failure, unspecified; I25.10 Atherosclerotic heart disease of native coronary artery without angina pectoris; K82.A1 Gangrene of gallbladder in cholecystitis; Z66 Do not resuscitate; E11.22 Type 2 diabetes mellitus with diabetic chronic kidney disease; E11.40 Type 2 diabetes mellitus with diabetic neuropathy, unspecified; E11.69 Type 2 diabetes mellitus with other specified complication; Z99.2 Dependence on renal dialysis; D63.1 Anemia in chronic kidney disease; E78.5 Hyperlipidemia, unspecified; E87.5 Hyperkalemia; Z95.5 Presence of coronary angioplasty implant and graft; I25.2 Old myocardial infarction; Z79.4 Long term (current) use of insulin; E78.00 Pure hypercholesterolemia, unspecified; Z98.890 Other specified postprocedural states; Z79.899 Other long term (current) drug therapy; Z79.82 Long term (current) use of aspirin; D72.829 Elevated white blood cell count, unspecified; M46.46 Discitis, unspecified, lumbar region; E80.6 Other disorders of bilirubin metabolism
CPT/HCPCS: 36415; 71045-TC; 74181-TC; 76705-TC; 78226; 80048-TC; 80053-TC; 80076-TC; 82962-TC; 83690-TC; 83735-TC; 84100-TC; 85025-TC; 85610-TC; 86706; 86850-TC; 87081-TC; 87340; 90935-TC; 93307-TC; 94799-TC; 97110-TC; 97530-TC; A4216; A4223; A6209; A6403; A9537; G0378; J0330; J0690; J0696; J1100; J1171; J1815; J1940; J2185; J2270; J2405; J2704; J2765; J3010; J3490; J7030; J7050; J7060; P9047; Q9967; Q9968